=== PATIENT | female | born 1985 | race Caucasian/White ===

== ENCOUNTER 2017-05-18 11:31 | Inpatient (IN) ==
[2017-05-18] MEDS ORDERED: Naloxone 0.4 MG/ML INJ IVP PRN (11:51)
[2017-05-18] MEDS ORDERED: Famotidine 20 MG/2 ML VIAL IVP PRN (11:51)
[2017-05-18] MEDS ORDERED: Oxytocin 20 units/ LR 1000 mL 20 UNIT/1,000 ML BAG IVC SCH ×2 (12:00→20:09)
[2017-05-18 12:05] LABS: Basophils % 0.2 %; Eosinophils % 0.2 %; Hematocrit 36.9 % (35.3-44.9); Hemoglobin 12.4 g/dL (11.5-15.4); Immature Granulocytes % 0.5 % (0-4); Lymphocytes # 1.8 K/mcL (0.6-4.6); Lymphocytes % 17.7 %; Mean Corpuscular HGB Conc 33.6 g/dL (31.6-35.5); Mean Corpuscular Hemoglobin 28.9 pg (28.0-33.3); Mean Platelet Volume 9.9 fL (9.4-12.4); Monocytes # 0.7 K/mcL (0.0-1.3); Monocytes % 6.9 %; Neutrophils # 7.7 K/mcL (1.6-8.9); Platelet Count 247 K/mcL (140-400); Red Blood Count 4.29 M/mcL (3.82-4.97); Red Cell Distribution Width 13.8 % (11.5-14.5); Segmented Neutrophils % 74.5 %
[2017-05-18] MEDS: Ringers Solution, Lactated 1,000 ML IVC SCH ×2 (12:23→16:40)
--- NOTE | 2017-05-18 12:48 | OB/GYN History & Physical ---
Date of Encounter: 05/18/17 Time of Encounter: 12:42 Assessment and Plan (1) 39 weeks gestation of Current visit: Yes Status: Acute Admit to labor and delivery for induction of labor GBS negative Patient may have iv pain medication and/or epidural if requested IOL plan - AROM Consider pitocin if needed for augmentation Anticipate vaginal delivery POC per consult with Dr Lambert. History of Present Illness Chief complaint: IOL for EFW HPI: Ms. Terrazas is a 32 year old at 39 weeks and 5 days gestation that presents to labor and delivery for induction of labor due to efw in the 15th percentile at 37 weeks. Her was uncomplicated. She is GBS negative. She is Hep B negative, RPR negative, Varicella and Rubella immune, and HIV negative. Her blood type is O+. Obstetrical History - Pregnancies : 2 Para: 1 Term: 1 : 0 Ab's: 0 Livin Review of System OB All systems PM: reviewed and no additional remarkable complaints except as stated Exam - Constitutional Constitutional: well developed, well nourished, no acute distress, average body habitus - HEENT HEENT: Normocephaly, Mucus Membranes Moist - Neck Neck exam: full ROM - Lungs Respiratory exam: CTAB - Cardiovascular Cardiovascular exam: RRR, +S1, +S2 - Abdomen Abdomen: Present: bowel sounds normal, gravid, non tender - Extremities Extremities exam: calf tenderness, normal capillary refill, normal inspection, radial pulses palpable and symetrical Deep Tendon Reflex Grade: 1+ Diminished - Cervix Dilation: 4 (per exam in office today) Effacement: 90 (per exam in office today) Station: -1 - Uterus Uterus exam: Present: normal size, normal contour Results Result Diagrams: 05/18/17 11:50 All other labs normal. - VTE Reasons for not Prescribing Prophylaxis: Treatment not Indicated - Low risk for VTE
--- NOTE | 2017-05-18 13:41 | OB Labor Progress Note ---
Date of Encounter: 05/18/17 Time of Encounter: 13:35 Labor Progress Note - Subjective Subjective: Patient resting comfortably in bed with at bedside - Vital Signs Vital Signs: VSS - Cervix Cervix: 4-5/90/-1 - Heart Tones Heart Tones: 130's with moderate variability and 15x15 accels - Paw Paw Paw Paw: No contractions per palpation or monitor. Uterus palpates soft - Interventions Interventions: AROM for small amount of clear fluid - Plan Plan: Continue routine labor management May have IV pain medication or epidural upon request GBS negative Consider pitocin IV if needed for augmentation Anticipate vaginal delivery POC per consult with Dr Lambert.
[2017-05-18] MEDS ORDERED: miSOPROStol 100 MCG TABLET PO ONE (14:52)
[2017-05-18] MEDS ORDERED: Methylergonovine 0.2 MG/ML AMPUL IM ONE ×2 (14:52→19:14)
[2017-05-18] MEDS ORDERED: Lidocaine 1% 20 ML MDV ONE (18:39)
[2017-05-18] MEDS ORDERED: miSOPROStol 100 MCG TABLET RC STA (19:14)
--- NOTE | 2017-05-18 19:17 | OB/GYN Procedure Note ---
Delivery - Delivery Date: 05/18/17 Provider: Julieth Woodward Intrapartum events: none Delivery induction: AROM Delivery augmentation: pitocin Delivery monitor: external FHT, external uterine Anesthesia: local Estimated Blood Loss: 350 - Infant (s) A Infant Delivery Date: 05/18/17 Delivery Time: 18:33 Presentation: vertex Position: EDGAR Route of delivery: Gender: Male Viability: Viable Pounds: 6 Ounces: 13 Weight Gram: 3.11 kg at 1 minute: 8 at 5 mins: 9 Shoulder Dystocia: not encountered Placenta: spontaneous Cord: 3 umbilical vessels - Repair Episiotomy: none Laceration Description: Perineal - 1st Degree - Complications Delivery complications: none Delivery comments: Patient progressed to complete and began spontaneously pushing stating "I'm pushing!" as was . of viable vigorous male infant in EDGAR over first degree perineum. No nuchal cord, no meconium, no shoulder dystocia encountered. Infant placed onto maternal abdomen. Apgars 8 and 9 at 1 and 5 minutes of age respectively. Cord clamped and cut with cessation of pulsing. Large gush of blood noted from vagina; placenta delivered spontaneously and appears grossly intact with 3 vessel cord. Uterine atony noted; resolved with uterine massage, IV pitocin, cytotec WI, and methergine IM. First degree repaired under local anesthetic in the usual fashion with 3-0 vicryl. Patient tolerated well. Uterus remains firm and at 3 finger-breadths below the umbilicus at the time of completion of the repair with small amount of lochia. No other laceration noted upon inspection. Patient and infant stable in skin to skin in recovery. EBL 350. Dr Lambert notified. - Disposition Mom disposition: stable in LDR disposition: stable in LDR
[2017-05-18] MEDS: Ibuprofen 600 MG TABLET PO PRN (19:23)
[2017-05-18] MEDS ORDERED: Measles/Mumps/Rubella Vacc 0.5 ML VIAL SQ PRN (20:09)
[2017-05-18] MEDS ORDERED: Sennosides 8.6 MG TABLET PO PRN (20:09)
[2017-05-18] MEDS ORDERED: Acetaminophen 325 MG TABLET PO PRN (20:09)
[2017-05-18] MEDS ORDERED: Ondansetron 4 MG/2 ML VIAL IVP PRN (22:55)
[2017-05-18] MEDS ORDERED: Ondansetron 4 MG/2 ML VIAL ONE (22:59)
[2017-05-19] MEDS: Ibuprofen 600 MG TABLET PO PRN ×2 (08:14→13:27)
--- NOTE | 2017-05-19 08:41 | Discharge Summary ---
Date of Encounter: 05/19/17 Time of Encounter: 08:38 - Discharge Diagnosis (1) Vaginal delivery Priority: Primary Status: Acute Comments: Pt meeting milestones. (2) Mother currently breast-feeding Priority: Secondary Status: Acute - Discharge Medications Prescriptions: Ibuprofen [Motrin] 600 mg PO Q6HR PRN #60 tablet PRN Reason: Cramping Docusate [Colace] 100 mg PO BID #60 capsule Home Medications: Breast Pump [BREAST PUMP] 1 each .ROUTE AD #1 each 05/19/17 [Rx] Docusate [Colace] 100 mg PO BID #60 capsule 05/19/17 [Rx] Ibuprofen [Motrin] 600 mg PO Q6HR PRN #60 tablet 05/19/17 [Rx] Vit/FA 1 each PO DAILY tablet 05/19/17 [Rx] Allergies/Adverse Reactions: Allergies No Known Allergies Allergy (Verified 05/18/17 16:42) Data Procedures and tests throughout hospitalization: Laboratory Tests 05/18/17 11:50 WBC 10.4 RBC 4.29 Hgb 12.4 Hct 36.9 MCV 86.0 MCH 28.9 MCHC 33.6 RDW 13.8 Plt Count 247 MPV 9.9 Immature Gran % 0.5 Seg Neutrophils % 74.5 Lymphocytes % 17.7 Monocytes % 6.9 Eosinophils % 0.2 Basophils % 0.2 Neutrophils # 7.7 Lymphocytes # 1.8 Monocytes # 0.7 Eosinophils # 0.0 Basophils # 0.0 Labs on day of discharge: Labs from last 24 hours 05/18/17 11:50 WBC 10.4 RBC 4.29 Hgb 12.4 Hct 36.9 MCV 86.0 MCH 28.9 MCHC 33.6 RDW 13.8 Plt Count 247 MPV 9.9 Immature Gran % 0.5 Seg Neutrophils % 74.5 Lymphocytes % 17.7 Monocytes % 6.9 Eosinophils % 0.2 Basophils % 0.2 Neutrophils # 7.7 Lymphocytes # 1.8 Monocytes # 0.7 Eosinophils # 0.0 Basophils # 0.0 Date of admission: 05/18/17 11:31 Primary care physician: Yuri Garzon DO Consults: 05/18/17 20:09 Consult to [employer]cer [CONS] Routine Comment: Vaginal delivery, consult needed Discharging clinician: Laura Hutton Anticipated date of discharge: 05/19/17 - Patient Status Disposition: Home, Self-Care Condition: Good Functional capacity at discharge: independent ambulation Overall status at discharge: patient is progressing back to baseline - Discharge Instructions Follow Up With: Yuri Garzon DO [Primary Care Provider] - Yuri Lambert MD [Partnered Physician] - Hospital Course Reason for admission: active labor Delivery: Episiotomy: none Laceration: 1st degree Other procedures: none complications: none Discharge diagnosis: IUP at term delivered [place] baby: male Hospital course: - Delivery Date: 05/18/17 Provider: Julieth Woodward Intrapartum events: none Delivery induction: AROM Delivery augmentation: pitocin Delivery monitor: external FHT, external uterine Anesthesia: local Estimated Blood Loss: 350 - (s) Infant A Infant Delivery Date: 05/18/17 Infant Delivery Time: 18:33 Presentation: vertex Position: EDGAR Route of delivery: Gender: Male Viability: Viable Pounds: 6 Ounces: 13 Weight Gram: 3.11 kg at 1 minute: 8 at 5 mins: 9 Shoulder Dystocia: not encountered Placenta: spontaneous Cord: 3 umbilical vessels - Repair Episiotomy: none Laceration Description: Perineal - 1st Degree Time Attestation: Total time spent providing and/or coordinating discharge services: Time Spent: Less than 30 minutes Exam - Constitutional Vitals: Temp Pulse Resp BP Pulse Ox 98.5 F 73 16 99/63 96 05/19/17 04:10 05/19/17 04:10 05/19/17 04:10 05/19/17 04:10 05/19/17 04:10 General appearance IM: A&O X 3 - Respiratory Respiratory exam: Present: CTAB - Cardiovascular Cardiovascular exam IM: Present: RRR, +S1, +S2 - Rectal Rectal exam: deferred - Uterine Tone: Firm Uterus Position: 2 Fingers Below Umbilicus - Extremities Exam Extremities exam IM: Present: normal inspection - Neurological Exam Neurological exam: normal gait, oriented X3 - Psychiatric Additional comments: reports good mood
[2017-05-19] MEDS ORDERED: Prenatal Vit/FA 1 EACH TABLET PO SCH (09:00)
== END 2017-05-19 19:45 | disposition home or self-care (01) | DRG 775 ==
LOC: 1NENULAB 11:31 → 1NENUOBS 21:41
PROVIDERS: ADMIT Obstetrics & Gynecology; ATTEND Obstetrics & Gynecology